=== PATIENT | male | born 1955 | race Caucasian/White ===

== ENCOUNTER 2020-10-14 19:59 | Emergency (ER) | payer OTHER, MEDICAID ==
[~2020-10-14] VITALS: Ht 172.7 cm; Wt 72.6 kg
[~2020-10-14 19:59] MED LIST: LEVE500T32 PO; LISI20TA28 PO; TRAZ50TA2 PO
[2020-10-14] MEDS ORDERED: methylPREDNISolone SOD SUCC 125 MG/2 ML VL IV ONE (20:45)
[2020-10-14] MEDS ORDERED: CEFTRIAXONE SODIUM 2 GM in D5W 5% 50 ML IV ONE (20:45)
[2020-10-14] MEDS ORDERED: GLYCOPYRROLATE 0.2 MG/ML 1ML VIAL IV ONE (20:45)
[2020-10-14] MEDS ORDERED: fentaNYL CITRATE 100 MCG/2 ML VL IV ONE (20:45)
[2020-10-14 21:14] LABS: Basophils # (auto) 0 10 ^3/uL (0-0.2); Basophils % (auto) 0.5 % (0.0-2.0); Eosinophils # (auto) 0.1 10 ^3/uL (0-0.8); Nucleated Red Blood Cells % 0.1 %; Red Cell Distribution Width 14.3 % (11.8-14.3)
[2020-10-14 21:16] LABS: Eosinophils % (auto) 1.8 % (0.0-7.0); Hemoglobin 16.4 g/dL (13.5-17.5); Lymphocytes % (auto) 13.7 % (10.0-50.0); Mean Corpuscular Hemoglobin 34.3 pg (28.0-32.0); Mean Corpuscular Hgb Conc. 35.6 g/dL (32.0-36.0); Mean Corpuscular Volume 96.1 fL (80.0-100.0); Monocytes # (auto) 0.7 10 ^3/uL (0-1.3); Monocytes % (auto) 9.1 % (0.0-12.0); Neutrophils # (auto) 5.3 10 ^3/uL (1.6-8.6); Neutrophils % (auto) 74.9 % (37.0-80.0); Platelet Count (auto) 172 10^3/uL (140-450); Red Blood Cells 4.79 10^6/uL (4.5-5.90); White Blood Cell 7.1 10^3/uL (4.4-10.8)
[2020-10-14 21:27] LABS: INR 0.98 (0.9-1.15)
[2020-10-14 21:30] LABS: Alanine Aminotransferase 49 U/L (16-61); Albumin 3.7 g/dL (3.4-5.0); Anion Gap 7 (5-15); Aspartate Aminotransferase 23 U/L (15-37); Blood Urea Nitrogen 13 mg/dL (7-18); Calcium 8.5 mg/dL (8.5-10.1); Carbon Dioxide 21 mmol/L (21-32); Chloride 110 mmol/L (98-107); GFR African American 96 mL/min; GFR Non-African American 80 mL/min; Glucose 91 mg/dL (74-106); Potassium 3.7 mmol/L (3.5-5.1); Sodium 138 mmol/L (136-145)
[2020-10-14 21:34] LABS: Alkaline Phosphatase 95 U/L (45-117); Bilirubin, Total 0.2 mg/dL (0.2-1.0); Total Protein 7.3 g/dL (6.4-8.2)
[2020-10-14] MEDS ORDERED: IOHEXOL 300 MG/ML 100ML BOTTLE IJ ONE (21:49)
[2020-10-14 22:45] VITALS: BP 115/76
== END 2020-10-14 23:56 | disposition home or self-care (01) ==
LOC: ER 19:59
DX: S01.512A Laceration without foreign body of oral cavity, initial encounter (principal); K14.9 Disease of tongue, unspecified; E04.1 Nontoxic single thyroid nodule; F41.9 Anxiety disorder, unspecified; I10 Essential (primary) hypertension; F10.10 Alcohol abuse, uncomplicated; Y90.0 Blood alcohol level of less than 20 mg/100 ml; Z79.899 Other long term (current) drug therapy; Z90.89 Acquired absence of other organs; X58.XXXA Exposure to other specified factors, initial encounter; Y93.89 Activity, other specified; Y92.89 Other specified places as the place of occurrence of the external cause; Y99.8 Other external cause status
CPT/HCPCS: 36415; 70487; 70491; 80053; 80320; 84484; 85025; 85610; 93005; 96365; 96375; 99285; J0696; J2930; J3010; J7060; Q9967

== ENCOUNTER 2024-04-03 10:15 | Inpatient (IN) | payer OTHER, MEDICAID ==
[~2024-04-03] VITALS: Ht 177.8 cm; Wt 74.9 kg
[~2024-04-03 10:15] MED LIST changes: -LEVE500T32 PO; +LEVE500T40 PO; -LISI20TA28 PO; +LISI20TA56 PO; +TRAZ-227 PO; -TRAZ50TA2 PO
--- NOTE | 2024-04-03 10:51 | ED.PDOC ---
Altered Mental Status HPI Comments 68 y.o male with PMH of HTN, DM, Seizures, Alzheimer, presents to the ED via EMS for an evaluation of altered mental status. EMS reports patient was wandering around a neighborhood barefoot, people around the neighborhood called 911 s/p witnessing patient fall backwards. On scene, patient's blood glucose read 67, E MS administrated D10 bolus increasing glucose to 74. Patient is alert and oriented x 3, complains of back and bilateral feet pain. Multiple small wounds noted to patient's feet. Patient is a poor historian, unknown where he resides and if he has family nearby. Chief Complaint: ALOC Time Seen by MD: 10:28 Primary Care Provider: KOBY/JOB Reviewed Notes: Nurses Notes, Geography Professor Notes, Medications, Allergies Allergies: Coded Allergies: NO KNOWN ALLERGIES (Unverified , 02/18/14) Home Meds Active Scripts Levetiracetam (Keppra) 500 Mg Tab, 1 TAB PO BID, #60 TAB 0 Refills Prov:DESHAWN FELIZ MD 02/19/14 Reported Medications Trazodone Hcl (Trazodone Hcl) 50 Mg Tab, 50 MG PO HS, MG 02/18/14 Lisinopril (Lisinopril) 20 Mg Tab, 20 MG PO DAILY for 30 Days, MG 02/18/14 Information Source: Emergency Med Personnel Mode of Arrival: EMS Severity: Moderate Timing: Hours Duration: Since onset Prehospital treatment: Accucheck (67 and 74 s/p D10 ), Treatment (D10 ) Quality: Decreased Alertness Recent: Other History of: Other (Alzheimer ) Associated Signs and Symptoms: Other Past Medical History PAST MEDICAL HISTORY: Anxiety, HTN, Seizures Past Medical History (Other): Alzheimer Surgical History: Thyroidectomy, Tonsillectomy Family History Family History: Unknown Social History Smoker: Non-Smoker, Quit Greater Than 1 Year Alcohol: Occasionally Drugs: Denies Drug Use Lives In: Home Unable to Obtain due to: Altered Mental Status Physical Exam General Appearance: Moderate Distress HEENT: Normal ENT Inspection, Pharynx Normal, TMs Normal Neck: Full Range of Motion, Non-Tender, Normal, Normal Inspection Respiratory: Chest Non-Tender, Lungs Clear, No Accessory Muscle Use, No Respiratory Distress, Normal Breath Sounds Cardiovascular: No Edema, No JVD, No Murmur, No Gallop, Normal Peripheral Pulses, Regular Rate/Rhythm Breast Exam: Deferred Gastrointestinal: No Organomegaly, Non Tender, No Pulsatile Mass, Normal Bowel Sounds, Soft Genitalia: Deferred Pelvic: Deferred Rectal: Deferred Extremities: No calf tenderness, Normal capillary refill, No pedal edema Musculoskeletal : Apperance: Normal 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 Was a procedure done?: No Differential Diagnosis (ALOC) Differential Diagnosis: Dehydration, Drug Overdose, ETOH Intoxication X-Ray, Labs, Meds, VS Vital Signs Date Time Temp Pulse Resp B/P (MAP) Pulse Ox O2 Delivery O2 Flow Rate FiO2 04/03/24 14:00 94 32 145/80 (101) 95 04/03/24 12:00 102 04/03/24 12:00 102 21 132/75 (94) 96 04/03/24 11:45 106 22 97 Room Air* 0 21 04/03/24 11:22 107 04/03/24 11:18 98.0 109 17 142/86 (104) 96 98.0 04/03/24 11:06 107 04/03/24 10:37 97.9 96 18 117/77 (90) 96 Lab Test 04/03/24 11:42 04/03/24 11:30 04/03/24 11:19 Range/Units POC Glucose 189 H 70-106 mg/dl Urine Color Yellow Yellow Urine Clarity Turbid H Clear Urine pH 5.5 5.0-9.0 Urine Specific [place] 1.017 1.001-1.035 Urine Protein 1+ H Negative Urine Ketones 2+ H Negative Urine Blood 3+ H Negative /uL Urine Nitrite Negative Negative Urine Bilirubin Negative Negative Urine Urobilinogen Normal Negative mg/dL Urine Leukocyte Esterase Negative Negative /uL Urine RBC <1 0 - 3 /hpf Urine WBC 11 0 - 3 /hpf Urine Squamous Epithelial Cells Few <5 /hpf Urine Bacteria Few H None Seen /hpf Urine Hyaline Casts Many 0 - 2 /lpf Urine Mucus Few None Seen Urine Glucose Normal Normal mg/dL Urine Opiates Screen Neg NEGATIVE Urine Fentanyl Screen Neg NEGATIVE Urine Barbiturates Screen Neg NEGATIVE Urine Phencyclidine Screen Neg NEGATIVE Urine Amphetamines Screen Neg NEGATIVE Urine Benzodiazepines Screen Neg NEGATIVE Urine Cocaine Screen Neg NEGATIVE Urine Cannabinoids Screen Pos NEGATIVE White Blood Count 17.3 H 4.4-10.8 10^3/uL Red Blood Count 4.76 4.5-5.90 10^6/uL Hemoglobin 15.3 13.5-17.5 g/dL Hematocrit 47.4 41.0-53.0 % Mean Corpuscular Volume 99.5 80.0-100.0 fL Mean Corpuscular Hemoglobin 32.1 H 28.0-32.0 pg Mean Corpuscular Hemoglobin Concent 32.3 32.0-36.0 g/dL Red Cell Distribution Width 15.4 H 11.8-14.3 % Platelet Count 182 140-450 10^3/uL Mean Platelet Volume 8.4 6.9-10.8 fL Neutrophils (%) (Auto) 92.1 H 37.0-80.0 % Lymphocytes (%) (Auto) 2.1 L 10.0-50.0 % Monocytes (%) (Auto) 5.7 0.0-12.0 % Eosinophils (%) (Auto) 0.0 0.0-7.0 % Basophils (%) (Auto) 0.1 0.0-2.0 % Neutrophils # (Auto) 15.9 H 1.6-8.6 10 ^3/uL Lymphocytes # (Auto) 0.4 0.4-5.4 10 ^3/uL Monocytes # (Auto) 1.0 0-1.3 10 ^3/uL Eosinophils # (Auto) 0 0-0.8 10 ^3/uL Basophils # (Auto) 0 0-0.2 10 ^3/uL Nucleated Red Blood Cells 0.0 % Sodium Level 141 136-145 mmol/L Potassium Level 4.7 3.5-5.1 mmol/L Chloride Level 107 98-107 mmol/L Carbon Dioxide Level 12 L 20-31 mmol/L Anion Gap 22 H 5-15 Blood Urea Nitrogen 35 H 9-23 mg/dL Creatinine 2.98 H 0.700-1.30 mg/dL Glomerular Filtration Rate Calc 22 >90 mL/min BUN/Creatinine Ratio 11.7 10.0-20.0 Serum Glucose 162 H 74-106 mg/dL Lactic Acid Level 1.5 0.4-2.0 mmol/L Calcium Level 9.4 8.7-10.4 mg/dL Total Bilirubin 1.2 H 0.2-1.0 mg/dL Aspartate Amino Transferase (AST) 208 H 13-40 U/L Alanine Aminotransferase (ALT) 64 H 7-40 U/L Alkaline Phosphatase 68 46-116 U/L Total Protein 7.4 5.7-8.2 g/dL Albumin 4.5 3.2-4.8 g/dL Plasma/Serum Blood Alcohol < 3.0 <10 mg/dL Current Medications Medications (Trade) Dose Ordered Sig/Keyla Route Start Time Stop Time Status Last Admin Sodium Chloride 500 ml @ 500 mls/hr Q1H ONCE IVB 04/03/24 11:00 04/03/24 11:59 DC 04/03/24 12:22 CHEST RADIOGRAPH IMPRESSION: No acute disease. IV Hep-Lock was established and the patient was given normal saline at a 500 cc bolus The alcohol level is negative The patient's lactic acid level is within normal limits The CBC shows an elevated white blood cell count of 17.4 The rest of the CBC is within normal limits The BUN is 35 and the creatinine is 2.98 The patient's CO2 level is decreased at 12 in the anion gap is elevated at 22 The marijuana level is positive The urine test is negative for infection At this time there is a concern about acidosis so we are getting an ABG on this patient The patient was being admitted at this time Images Reviewed?: Images reviewed and evaluated by me Time of 1ST Reevaluation: 10:46 Reevaluation 1ST: Unchanged Patient Education/Counseling: Other (patient is alert and oriented x 3 ) Family Education/Counseling: No Family Present Departure 1 Departure Time of Disposition: 15:06 Impression: Primary Impression: Confusion Additional Impression: Metabolic acidosis Disposition: 09 ADMITTED INPATIENT Admit to: Tele Condition: Fair Critical Care Note Critical Care Time?: Yes (35 min-critical care time only) Stability Stability form required: Yes Unstable for transfer: Telemetry monitoring (Telemetry monitoring required), ED Physician Assesment (Clinical assesment) I personally scribed for ARVIND NORWOOD MD (NABILPASOLIVIA) on 04/03/24 at 10:51. Electronically submitted by Stephany Botello ([facility]). I personally scribed for ARVIND NORWOOD MD (NABILPASLE) on 04/03/24 at 11:22. Electronically submitted by Stephany Botello ([facility]). I personally scribed for ARVIND NORWOOD MD (DVPASOLIVIA) on 04/03/24 at 12:11. Electronically submitted by Stephany Botello ([facility]). ARVIND NORWOOD MD Apr 03, 2024 10:51
[2024-04-03 11:45] VITALS: PULSE 106; RESP 22; O2SAT 97
--- NOTE | 2024-04-03 11:45 | DVH ---
CHEST RADIOGRAPH Indication:aloc Technique: Single frontal view of the chest was obtained COMPARISON: None FINDINGS: Lines and Tubes: None Lungs: Clear Pleura: No effusion. No pneumothorax. Cardiomediastinal contours: Unremarkable Bones: Unremarkable IMPRESSION: No acute disease.
[2024-04-03 11:50] LABS: Basophils # (auto) 0 10 ^3/uL (0-0.2); Basophils % (auto) 0.1 % (0.0-2.0); Eosinophils # (auto) 0 10 ^3/uL (0-0.8); Hematocrit 47.4 % (41.0-53.0); Hemoglobin 15.3 g/dL (13.5-17.5); Lymphocytes # (auto) 0.4 10 ^3/uL (0.4-5.4); Lymphocytes % (auto) 2.1 % (10.0-50.0); Mean Corpuscular Hemoglobin 32.1 pg (28.0-32.0); Mean Corpuscular Hgb Conc. 32.3 g/dL (32.0-36.0); Mean Corpuscular Volume 99.5 fL (80.0-100.0); Monocytes % (auto) 5.7 % (0.0-12.0); Neutrophils # (auto) 15.9 10 ^3/uL (1.6-8.6); Neutrophils % (auto) 92.1 % (37.0-80.0); Platelet Count (auto) 182 10^3/uL (140-450); Red Blood Cells 4.76 10^6/uL (4.5-5.90); Red Cell Distribution Width 15.4 % (11.8-14.3); White Blood Cell 17.3 10^3/uL (4.4-10.8)
[2024-04-03 12:06] LABS: Amphetamine Screen, Urine Neg (NEGATIVE)
[2024-04-03 12:07] LABS: Barbiturate Scree,Urine Neg (NEGATIVE); Benzodiazephine Screen, Urine Neg (NEGATIVE); Cocaine Screen, Urine Neg (NEGATIVE); Opiate Scree,Urine Neg (NEGATIVE); Phencyclidine Screen, Urine Neg (NEGATIVE)
[2024-04-03 12:08] LABS: Cannabinoid Screen, Urine Pos (NEGATIVE)
[2024-04-03 12:09] LABS: Alanine Aminotransferase 64 U/L (7-40); Albumin 4.5 g/dL (3.2-4.8); Alkaline Phosphatase 68 U/L (46-116); Anion Gap 22 (5-15); Aspartate Aminotransferase 208 U/L (13-40); BUN/Creatinine Ratio 11.7 (10.0-20.0); Blood Alcohol < 3.0 mg/dL (<10); Blood Urea Nitrogen 35 mg/dL (9-23); Calcium 9.4 mg/dL (8.7-10.4); Carbon Dioxide 12 mmol/L (20-31); Chloride 107 mmol/L (98-107); Glucose 162 mg/dL (74-106); Potassium 4.7 mmol/L (3.5-5.1); Sodium 141 mmol/L (136-145)
[2024-04-03 12:10] LABS: Bilirubin, Total 1.2 mg/dL (0.2-1.0); Total Protein 7.4 g/dL (5.7-8.2)
[2024-04-03] MEDS: SODIUM CHLORIDE 0.9% 500 ML IVB ONE (12:22)
[2024-04-03 13:02] LABS: Urine Bacteria FEW /hpf (None Seen); Urine Blood 3+ /uL (Negative); Urine Clarity Turbid (Clear); Urine Color Yellow (Yellow); Urine Hyaline Cast MANY /lpf (0 - 2); Urine Mucus FEW (None Seen); Urine Protein, UAD 1+ (Negative); Urine Specific Gravity 1.017 (1.001-1.035); Urine Urobilinogen Normal (Negative); Urine WBC 11 /hpf (0 - 3); Urine pH 5.5 (5.0-9.0)
--- NOTE | 2024-04-03 14:38 | ECG ---
[facility] Test Date: 2024-04-03 Test Time: 11:06:10 Pat Name: TRESA MENA Department: ED Room: Gender: M Monument Carver: SUJATA : 1955 Requested By: ARVIND NORWOOD Order Number: [id number] Reading MD: Measurements Intervals [place] Rate: 107 P: 65 MI: 155 QRS: -37 QRSD: 83 T: 103 QT: 383 QTc: 511 Interpretive Statements Sinus tachycardia Atrial premature complexes Left axis deviation RSR' in V1 or V2, probably normal variant Nonspecific T abnormalities, lateral leads Prolonged QT interval Please click the below link to view image of tracing.
--- NOTE | 2024-04-03 16:53 | DVH ---
EXAM: CT HEAD WITHOUT CONTRAST INDICATION: aloc TECHNIQUE: CT of the head without intravenous contrast. Radiation dose : Head: CT Dose: CTDI volume is 53 mGy. Dose-length product is 969.12 mGy*cm The dose indicators for CT are the volume computed tomography (CT) dose index (CTDIvol) and the dose length product (DLP), and are measured in units of mGy and mGy-cm, respectively. These indicators are not patient dose, but values generated from the CT scanner acquisition factors. The report includes radiation exposure data for exposures received during this examination. COMPARISON: None FINDINGS: There is no evidence of acute intracranial hemorrhage, extra-axial collection, mass effect, midline s hift, herniation or hydrocephalus. There is mild cerebral atrophy. The flynn-white differentiation is intact. Patchy periventricular and subcortical white matter hypoattenuation is nonspecific but may be related to small vessel ischemic disease. Mild ethmoid sinus disease. The surrounding soft tissues and osseous structures are unremarkable. IMPRESSION: 1. No acute intracranial abnormality. Mild cerebral atrophy. Mild changes of chronic microvascular i schemic disease. Mild ethmoid sinus disease. Radiation optimization: All CT scans at this facility use at least one of these dose optimization russel hniques: Automated exposure control mA and/or kV adjustment per patient size (includes targeted exams where dose is matched to clinical indication) or iterative reconstruction. HS:Y
--- NOTE | 2024-04-03 17:10 | DVHHP2 ---
History of Present Illness History of Present Illness 68-year-old male with a history of hypertension, seizures presents to the emergency room for altered mental status. Apparently patient was found wandering through the neighborhood barefoot by EMS. Review of Systems Respiratory: No: Cough, Dry, Shortness of breath, SOB with excertion, Wheezing, Hemoptysis, Pleuritic Pain, Sputum, Wheezing, Other Gastrointestinal: No: Nausea, Vomiting, Abdominal Pain, Diarrhea, Constipation, Melena, Hematochezia, Other Neurological: No: Weakness, Numbness, Incoordination, Change in speech, Confusion, Seizures, Other Allergies: Coded Allergies: NO KNOWN ALLERGIES (Unverified , 02/18/14) Medications Current Medications Medications Dose Ordered Sig/Keyla Route Start Time Stop Time Status Last Admin Dose Admin Enoxaparin Sodium 40 mg DAILY SC 04/04/24 10:00 UNV Nitroglycerin 0.4 mg Q5MINP PRN SL 04/03/24 17:15 UNV Morphine Sulfate 2 mg Q30M PRN IV 04/03/24 17:15 UNV Sodium Chloride 1,000 ml @ 75 mls/hr [id number] IV 04/03/24 17:15 UNV Levetiracetam 500 mg BID PO 04/03/24 22:00 UNV Lisinopril 20 mg DAILY PO 04/04/24 10:00 UNV Trazodone HCl 50 mg HS PO 04/03/24 22:00 UNV Exam Vital Signs Vital Signs Date Time Temp Pulse Resp B/P (MAP) Pulse Ox O2 Delivery O2 Flow Rate FiO2 04/03/24 16:00 107 04/03/24 14:00 32 145/80 (101) 95 04/03/24 11:45 Room Air* 0 21 04/03/24 11:18 98.0 98.0 General Appearance: Other (altered) Respiratory: Clear to auscultation, Normal air movement Cardiovascular: Regular rate, Normal S1, Normal S2, No murmurs Abdominal: Normal bowel sounds, Soft, No tenderness Extremities: No clubbing Labs/Xrays Labs Test 04/03/24 11:42 04/03/24 11:30 04/03/24 11:19 Range/Units POC Glucose 189 H 70-106 mg/dl Urine Color Yellow Yellow Urine Clarity Turbid H Clear Urine pH 5.5 5.0-9.0 Urine Specific [place] 1.017 1.001-1.035 Urine Protein 1+ H Negative Urine Ketones 2+ H Negative Urine Blood 3+ H Negative /uL Urine Nitrite Negative Negative Urine Bilirubin Negative Negative Urine Urobilinogen Normal Negative mg/dL Urine Leukocyte Esterase Negative Negative /uL Urine RBC <1 0 - 3 /hpf Urine WBC 11 0 - 3 /hpf Urine Squamous Epithelial Cells Few <5 /hpf Urine Bacteria Few H None Seen /hpf Urine Hyaline Casts Many 0 - 2 /lpf Urine Mucus Few None Seen Urine Glucose Normal Normal mg/dL Urine Opiates Screen Neg NEGATIVE Urine Fentanyl Screen Neg NEGATIVE Urine Barbiturates Screen Neg NEGATIVE Urine Phencyclidine Screen Neg NEGATIVE Urine Amphetamines Screen Neg NEGATIVE Urine Benzodiazepines Screen Neg NEGATIVE Urine Cocaine Screen Neg NEGATIVE Urine Cannabinoids Screen Pos NEGATIVE White Blood Count 17.3 H 4.4-10.8 10^3/uL Red Blood Count 4.76 4.5-5.90 10^6/uL Hemoglobin 15.3 13.5-17.5 g/dL Hematocrit 47.4 41.0-53.0 % Mean Corpuscular Volume 99.5 80.0-100.0 fL Mean Corpuscular Hemoglobin 32.1 H 28.0-32.0 pg Mean Corpuscular Hemoglobin Concent 32.3 32.0-36.0 g/dL Red Cell Distribution Width 15.4 H 11.8-14.3 % Platelet Count 182 140-450 10^3/uL Mean Platelet Volume 8.4 6.9-10.8 fL Neutrophils (%) (Auto) 92.1 H 37.0-80.0 % Lymphocytes (%) (Auto) 2.1 L 10.0-50.0 % Monocytes (%) (Auto) 5.7 0.0-12.0 % Eosinophils (%) (Auto) 0.0 0.0-7.0 % Basophils (%) (Auto) 0.1 0.0-2.0 % Neutrophils # (Auto) 15.9 H 1.6-8.6 10 ^3/uL Lymphocytes # (Auto) 0.4 0.4-5.4 10 ^3/uL Monocytes # (Auto) 1.0 0-1.3 10 ^3/uL Eosinophils # (Auto) 0 0-0.8 10 ^3/uL Basophils # (Auto) 0 0-0.2 10 ^3/uL Nucleated Red Blood Cells 0.0 % Sodium Level 141 136-145 mmol/L Potassium Level 4.7 3.5-5.1 mmol/L Chloride Level 107 98-107 mmol/L Carbon Dioxide Level 12 L 20-31 mmol/L Anion Gap 22 H 5-15 Blood Urea Nitrogen 35 H 9-23 mg/dL Creatinine 2.98 H 0.700-1.30 mg/dL Glomerular Filtration Rate Calc 22 >90 mL/min BUN/Creatinine Ratio 11.7 10.0-20.0 Serum Glucose 162 H 74-106 mg/dL Lactic Acid Level 1.5 0.4-2.0 mmol/L Calcium Level 9.4 8.7-10.4 mg/dL Total Bilirubin 1.2 H 0.2-1.0 mg/dL Aspartate Amino Transferase (AST) 208 H 13-40 U/L Alanine Aminotransferase (ALT) 64 H 7-40 U/L Alkaline Phosphatase 68 46-116 U/L Total Protein 7.4 5.7-8.2 g/dL Albumin 4.5 3.2-4.8 g/dL Plasma/Serum Blood Alcohol < 3.0 <10 mg/dL Assessment/Plan Assessment/Plan 1. Metabolic encephalopathy Neurology consult, obtain brain MRI, supportive care 2. Hypertension Monitor blood pressure, continue home meds 3. Seizures Seizure precautions, continue with Keppra 4. Leukocytosis without sepsis or SIRS Rocephin for now 5. Acute psychosis? Tele psych consult 6. CKD Monitor BMP Plan discussed with: Patient My Orders Orders - AILYN VICTORIA DIALYSIS EQUIPMENT TECHNICIAN Procedure Category Date Status Time Head Without Contrast CT 04/03/24 Resulted 16:19 Admit ADMIT 04/03/24 Transmitted 17:05 2 Gm Sodium Diet DIET 04/03/24 Transmitted Dinner Enoxaparin Sodium PHA 04/04/24 Logged (Lovenox) 10:00 Condition: Fair CLARK 04/03/24 In Process 17:05 Nitroglycerin PHA 04/03/24 Logged Sublingual (Ntrostat 17:15 Morphine Sulfate PHA 04/03/24 Logged Injection 17:15 Stat Ekg For Chest CLARK 04/03/24 In Process Pain 17:05 Notify Of Changes CLARK 04/03/24 In Process From Base 17:05 Cupola Tapper For CLARK 04/03/24 In Process 24 Hours 17:05 Emergency Dysrhythmia CLARK 04/03/24 In Process Protocol 17:05 Rhythm Strips Once CLARK 04/03/24 In Process Every Shift 17:05 Oxygen By Nasal RT 04/03/24 Transmitted Cannula 17:05 Brain Head Wo Contrast MRI 04/03/24 Logged 17:05 *Cons[address] Calderon CONS 04/03/24 Transmitted [place] 17:05 Sodium Chloride 0.9% PHA 04/03/24 Logged 17:15 Soc Telemed Psych CONS 04/03/24 Transmitted Consult 17:08 Levetiracetam Tablet PHA 04/03/24 Logged (Keppra Tablet) 22:00 Lisinopril Tablet PHA 04/04/24 Logged (Zestril Tablet) 10:00 Trazodone Hcl PHA 04/03/24 Logged (Desyrel) 22:00 Ammonia LAB 04/03/24 Transmitted 17:09 Lipid Panel LAB 04/04/24 Verified 05:00 Date of Service: Apr 03, 2024 Billing Provider: LOUIS HWANG MD Common Visit Codes: [id number] INP/OBS CARE (MOD) AILYN VICTORIA DIALYSIS EQUIPMENT TECHNICIAN Apr 03, 2024 17:10
[2024-04-03] MEDS ORDERED: MORPHINE SULFATE INJ 2 MG/ml SYRG IV PRN (17:15)
[2024-04-03] MEDS: SODIUM CHLORIDE 0.9% 1,000 ML IV SCH ×2 (17:15→20:15)
[2024-04-03] MEDS ORDERED: NITROGLYCERIN 0.4 MG SL TAB SL PRN (17:15)
[2024-04-03] MEDS: cefTRIAXone 1GM/50ML D5W 50 ML IV SCH (18:30)
--- NOTE | 2024-04-03 20:50 | DVHINCON2 ---
Date of service: Apr 03, [address] Cosme Spear Reason for Consultation ALOC History of Present Illness Mr Castorena is a 68 years old right handed male with a history of hypertension, diabetes, anxiety. He was brought to the [facility] for altered mental status. At this time, he is alert, oriented to person, place, not able to provide history, the following information is obtained from his son, chart review and nurse I saw him on 02/18/14 for seizure Apparently, the patient was found wandering on the street with bare feet, and people witnessed him falling backwards, bystander dial 911. On scene, his blood glucose was 67 and he was treated accordingly According to the family, the patient has nonconvulsive seizure disorders, the symptoms provided by his son were consistent with the one obtained from his girlfriend in 01/2014. He has episodic event where he became nonresponsive, smacks or sucks mouth, with tongue biting and bowel incontinence, but no convulsion, the vents were about 30 seconds. His son is not aware of the frequency of these attacks, and wound was last time he had one He was on Keppra, but son is not aware of the dosage, According to my consultation reports dated 01/2524, he had constant short-term memory difficulty, he was related the problem has been more obvious since 2018 UDS, 04/03/2024: Cannabinoids Plasma alcohol, 04/03/2024: < 3 Urinalysis, 04/03/2024: WBC: 11, urine leukocyte esterase: Negative WBC/HB/PLT/MCV, 04/03/2024: 17.3/15.3/182/99.5 BUN/CR, 04/03/2024: 35/2.98 HCO3 04/03/2024: 12 Lactic Acid, 04/03/2024: 1.5 HGB A1c, 04/03/2024: 5.4 TBI/AST/ALT/AP, 04/03/2024: 1.2/208/64/68 Ammonia, 04/03/24: <10 CT head, 04/03/2024: No acute intracranial abnormality. Mild cerebral atrophy. Mild changes of chronic microvascular ischemic disease. Mild ethmoid sinus disease. Past Medical History Hypertension, diabetes, anxiety, delirium tremor Past Surgical History Tonsillectomy, thyroidectomy Family History: Family history: Cardiovascular disease G8 MOTHER G8 FATHER (SVT) G8 BROTHER (Mitral valve replacement endocarditis ) Stroke G8 BROTHER Family History Stroke. Father had alcohol problem and dementia Social History Smoking: Previous tobacco smoker Alcohol: Previous alcohol abuse, he may still abuse alcohol, family found alcohol in his hotel room on 04/03/24 Drugs: None Lives In: A hotel Allergies: Coded Allergies: NO KNOWN ALLERGIES (Unverified , 02/18/14) Home Meds Active Scripts Levetiracetam (Keppra) 500 Mg Tab, 1 TAB PO BID, #60 TAB 0 Refills Prov:DESHAWN FELIZ MD 02/19/14 Reported Medications Trazodone Hcl (Trazodone Hcl) 50 Mg Tab, 50 MG PO HS, MG 02/18/14 Lisinopril (Lisinopril) 20 Mg Tab, 20 MG PO DAILY for 30 Days, MG 02/18/14 Current Medications Current Medications Medications (Trade) Dose Ordered Sig/Keyla Route PRN Reason Start Time Stop Time Status Last Admin Enoxaparin Sodium (Lovenox) 30 mg DAILY SC 04/04/24 10:00 Nitroglycerin (Ntrostat Sublingual) 0.4 mg Q5MINP PRN SL FOR CHEST PAIN 04/03/24 17:15 Morphine Sulfate 2 mg Q30M PRN IV FOR CHEST PAIN 04/03/24 17:15 Sodium Chloride 1,000 ml @ 75 mls/hr [id number] IV 04/03/24 17:15 Levetiracetam (Keppra Tablet) 500 mg BID PO 04/03/24 22:00 Lisinopril (Zestril Tablet) 20 mg DAILY PO 04/04/24 10:00 Trazodone HCl (Desyrel) 50 mg HS PO 04/03/24 22:00 Ceftriaxone Sodium 50 ml @ 100 mls/hr DAILY@09 IV 04/03/24 18:00 04/03/24 18:30 Sodium Chloride 1,000 ml @ 50 mls/hr Q20H IV 04/03/24 19:00 Review of Systems Unobtainable Vital Signs Vital Signs Date Time Temp Pulse Resp B/P (MAP) Pulse Ox O2 Delivery O2 Flow Rate FiO2 04/03/24 18:00 93 13 145/67 (93) 96 04/03/24 11:45 Room Air* 0 21 04/03/24 11:18 98.0 98.0 Physical Exam GENERAL EXAM: General: the patient is well developed and nourished. No acute distress. HEENT: Normocephalic, neck is supple, no carotid bruits. No mass. ation. CARDIOVASCULAR: Regular rate and rhythm with no murmurs. S1, S2. ABDOMEN: Soft, nontender, normal bowel sound NEUROLOGICAL: MENTAL STATUS: Awake and alert. Oriented to person, place. Reasonable social skills SPEECH, LANGUAGE, HIGHER CORTICAL FUNCTION: no aphasia or dysathria. CRANIAL NERVES: #2: Intact visual quinteros to confrontation. The optic discs were sharp. #3,4,6: Pupils are equal, round and reactive. EOMs full and conjugate. No nystagmus. #5: Facial sensation intact in all three divisions bilaterally. Mandibular strength intact. #7: Facial muscles symmetrical and strength intact. #8: Hearing grossly normal to voice. #9,10: Uvula and soft palate rise in the midline. Swallow and voice are normal. #11: Trapezius and sternomastoid strength intact bilaterally. #12: Tongue midline. No fasciculations or atrophy. SENSATION: Sensation to touch and pinprick is normal. MOTOR: Normal tone in the upper and lower extremity. Normal muscle bulk. No fasciculations. No abnormal movements or posturing. Muscle strength of the major groups in the upper extremities is 5/5. Muscle strength of the major groups in the lower extremities is 5/5. REFLEXES: Deep tendon reflexes symmetrical. No pathological reflexes. CEREBELLAR/COORDINATION: Finger to nose is normal bilaterally. GAIT/STATION: deferred. Labs/Diagnostic Data Labs Test 04/03/24 17:47 04/03/24 11:42 04/03/24 11:30 04/03/24 11:19 Range/Units Ammonia < 10 L 11-32 umol/L POC Glucose 189 H 70-106 mg/dl Urine Color Yellow Yellow Urine Clarity Turbid H Clear Urine pH 5.5 5.0-9.0 Urine Specific [place] 1.017 1.001-1.035 Urine Protein 1+ H Negative Urine Ketones 2+ H Negative Urine Blood 3+ H Negative /uL Urine Nitrite Negative Negative Urine Bilirubin Negative Negative Urine Urobilinogen Normal Negative mg/dL Urine Leukocyte Esterase Negative Negative /uL Urine RBC <1 0 - 3 /hpf Urine WBC 11 0 - 3 /hpf Urine Squamous Epithelial Cells Few <5 /hpf Urine Bacteria Few H None Seen /hpf Urine Hyaline Casts Many 0 - 2 /lpf Urine Mucus Few None Seen Urine Glucose Normal Normal mg/dL Urine Opiates Screen Neg NEGATIVE Urine Fentanyl Screen Neg NEGATIVE Urine Barbiturates Screen Neg NEGATIVE Urine Phencyclidine Screen Neg NEGATIVE Urine Amphetamines Screen Neg NEGATIVE Urine Benzodiazepines Screen Neg NEGATIVE Urine Cocaine Screen Neg NEGATIVE Urine Cannabinoids Screen Pos NEGATIVE White Blood Count 17.3 H 4.4-10.8 10^3/uL Red Blood Count 4.76 4.5-5.90 10^6/uL Hemoglobin 15.3 13.5-17.5 g/dL Hematocrit 47.4 41.0-53.0 % Mean Corpuscular Volume 99.5 80.0-100.0 fL Mean Corpuscular Hemoglobin 32.1 H 28.0-32.0 pg Mean Corpuscular Hemoglobin Concent 32.3 32.0-36.0 g/dL Red Cell Distribution Width 15.4 H 11.8-14.3 % Platelet Count 182 140-450 10^3/uL Mean Platelet Volume 8.4 6.9-10.8 fL Neutrophils (%) (Auto) 92.1 H 37.0-80.0 % Lymphocytes (%) (Auto) 2.1 L 10.0-50.0 % Monocytes (%) (Auto) 5.7 0.0-12.0 % Eosinophils (%) (Auto) 0.0 0.0-7.0 % Basophils (%) (Auto) 0.1 0.0-2.0 % Neutrophils # (Auto) 15.9 H 1.6-8.6 10 ^3/uL Lymphocytes # (Auto) 0.4 0.4-5.4 10 ^3/uL Monocytes # (Auto) 1.0 0-1.3 10 ^3/uL Eosinophils # (Auto) 0 0-0.8 10 ^3/uL Basophils # (Auto) 0 0-0.2 10 ^3/uL Nucleated Red Blood Cells 0.0 % Sodium Level 141 136-145 mmol/L Potassium Level 4.7 3.5-5.1 mmol/L Chloride Level 107 98-107 mmol/L Carbon Dioxide Level 12 L 20-31 mmol/L Anion Gap 22 H 5-15 Blood Urea Nitrogen 35 H 9-23 mg/dL Creatinine 2.98 H 0.700-1.30 mg/dL Glomerular Filtration Rate Calc 22 >90 mL/min BUN/Creatinine Ratio 11.7 10.0-20.0 Serum Glucose 162 H 74-106 mg/dL Hemoglobin A1c 5.4 <5.7 % A1C Lactic Acid Level 1.5 0.4-2.0 mmol/L Calcium Level 9.4 8.7-10.4 mg/dL Total Bilirubin 1.2 H 0.2-1.0 mg/dL Aspartate Amino Transferase (AST) 208 H 13-40 U/L Alanine Aminotransferase (ALT) 64 H 7-40 U/L Alkaline Phosphatase 68 46-116 U/L Total Protein 7.4 5.7-8.2 g/dL Albumin 4.5 3.2-4.8 g/dL Thyroid Stimulating Hormone (TSH) 0.97 0.55-4.78 uIU/mL Plasma/Serum Blood Alcohol < 3.0 <10 mg/dL Assessment Altered mental status ? Metabolic encephalopathy ? 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 Although this document has been carefully reviewed, there may still be some phonetic and typographical errors. These areas are purely typographical due to imperfections of the software programs, and do not reflect any compromise in the patient's medical care. Plan discussed with: Homar, Estephania ELLIE BANERJEE MD Apr 03, 2024 20:50
[2024-04-03] MEDS ORDERED: LORazepam 2MG/ML-1ML VIAL IV PRN (21:30)
[2024-04-03 22:46] LABS: COVID19 ANTIGEN SOFIA FIA NEGATIVE (NEGATIVE); Rapid Influenza A Negative (Negative); Rapid Influenza B Negative (Negative)
[2024-04-03] MEDS: traZODone HCL 50 MG TAB PO SCH (23:08)
[2024-04-03] MEDS: levETIRAcetam 500 MG TAB PO SCH (23:08)
[2024-04-04] VITALS (8 sets, daily range): BP systolic 98–118; BP diastolic 61–79; PULSE 59–90; RESP 18–20; TEMP 97.2–98.6; O2SAT 93–95
[2024-04-04] MEDS: ENOXAPARIN SOD 30 MG/0.3 ML SYRINGE SC SCH (09:45)
[2024-04-04] MEDS: LISINOPRIL 20 MG TAB PO SCH (10:00)
[2024-04-04] MEDS: LORazepam 2MG/ML-1ML VIAL IV PRN (10:10)
--- NOTE | 2024-04-04 12:13 | DVH ---
EXAM: MRI BRAIN HEAD WO CONTRAST HISTORY: CVA COMPARISON: CT HEAD WITHOUT CONTRAST on DOS: 04/03/24 TECHNIQUE: MRI was performed utilizing multiple appropriate imaging planes and pulse sequences. FINDINGS: SUPRATENTORIAL REGION: No evidence for acute ischemia or intracranial hemorrhage. Scattered ill-defi mohan FLAIR hyperintensities are noted within the bilateral periventricular region, vera radiata and subcortical white matter. POSTERIOR FOSSA: Unremarkable. BRAINSTEM: Unremarkable. SELLAR/SUPRASELLAR REGION: Unremarkable. VENTRICLES, CISTERNS, SULCI: Age-appropriate. ORBITS: Unremarkable. PARANASAL SINUSES: Unremarkable. MASTOID AIR CELLS: Unremarkable. VASCULATURE: Unremarkable. BONES/ SOFT TISSUES: Unremarkable. OTHER: None. IMPRESSION: 1. No acute intracranial process identified. 2. Mild chronic microvascular ischemic changes.
[2024-04-04 12:22] LABS: Basophils # (auto) 0 10 ^3/uL (0-0.2); Basophils % (auto) 0.4 % (0.0-2.0); Eosinophils # (auto) 0.1 10 ^3/uL (0-0.8); Eosinophils % (auto) 1.2 % (0.0-7.0); Hemoglobin 14.3 g/dL (13.5-17.5); Lymphocytes # (auto) 1.1 10 ^3/uL (0.4-5.4); Lymphocytes % (auto) 12.8 % (10.0-50.0); Mean Corpuscular Hemoglobin 32.6 pg (28.0-32.0); Mean Corpuscular Hgb Conc. 34.9 g/dL (32.0-36.0); Mean Corpuscular Volume 93.4 fL (80.0-100.0); Monocytes # (auto) 0.7 10 ^3/uL (0-1.3); Monocytes % (auto) 7.9 % (0.0-12.0); Neutrophils # (auto) 6.7 10 ^3/uL (1.6-8.6); Neutrophils % (auto) 77.7 % (37.0-80.0); Nucleated Red Blood Cells % 0.1 %; Platelet Count (auto) 156 10^3/uL (140-450); Red Cell Distribution Width 14.3 % (11.8-14.3); White Blood Cell 8.6 10^3/uL (4.4-10.8)
[2024-04-04 12:40] LABS: Chloride 113 mmol/L (98-107); Potassium 3.8 mmol/L (3.5-5.1); Sodium 144 mmol/L (136-145)
[2024-04-04 12:41] LABS: Anion Gap 4 (5-15); Calcium 9.6 mg/dL (8.7-10.4); Carbon Dioxide 27 mmol/L (20-31)
[2024-04-04 12:46] LABS: BUN/Creatinine Ratio 23.5 (10.0-20.0); Blood Urea Nitrogen 28 mg/dL (9-23); Glucose 146 mg/dL (74-106); Triglycerides 102 mg/dL (< 150)
[2024-04-04 12:47] LABS: LDL Cholesterol 63 mg/dL (< 100)
[2024-04-04 12:48] LABS: Cholesterol 144 mg/dL (< 200); HDL Cholesterol 59 mg/dL (40-59)
--- NOTE | 2024-04-04 14:04 | DVHPN2 ---
Progress Note Date Seen: Apr 04, 2024 Medical Necessity Reason Pt with a Central, PICC or Fol: No Subjective Review of Systems: CVS:Normal, RESPIRATORY:Normal, GI:Normal, NEURO:Normal Objective vital signs Vital Sign Date Time Temp Pulse Resp B/P (MAP) Pulse Ox O2 Delivery O2 Flow Rate FiO2 04/04/24 12:00 97.2 65 20 110/75 (87) 94 97.2 04/04/24 08:10 Room Air* 0 21 Total Intake and Output 04/03/24 04/03/24 04/04/24 15:00 23:00 07:00 Intake Total 500 ml 50 ml 450 ml Balance 500 ml 50 ml 450 ml medications Current Medications Medications Dose Ordered Sig/Keyla Route Start Time Stop Time Status Last Admin Dose Admin Enoxaparin Sodium 30 mg DAILY SC 04/04/24 10:00 04/04/24 09:45 30 MG Nitroglycerin 0.4 mg Q5MINP PRN SL 04/03/24 17:15 Morphine Sulfate 2 mg Q30M PRN IV 04/03/24 17:15 Sodium Chloride 1,000 ml @ 75 mls/hr [id number] IV 04/03/24 17:15 Levetiracetam 500 mg BID PO 04/03/24 22:00 04/04/24 09:45 500 MG Lisinopril 20 mg DAILY PO 04/04/24 10:00 Trazodone HCl 50 mg HS PO 04/03/24 22:00 04/03/24 23:08 50 MG Ceftriaxone Sodium 50 ml @ 100 mls/hr DAILY@09 IV 04/03/24 18:00 04/04/24 10:58 100 MLS/HR Sodium Chloride 1,000 ml @ 50 mls/hr Q20H IV 04/03/24 19:00 04/04/24 10:58 50 MLS/HR Lorazepam 1 mg ONCE PRN IV 04/03/24 21:30 04/04/24 10:10 1 MG Lorazepam 1 mg Q5MINP PRN IV 04/03/24 21:30 Examination: GENERAL:Normal, HEENT:Normal, LUNGS:Normal, CVS:Normal, ABDOMEN:Normal, SKIN:Normal, NEURO:Normal laboratory and microbiology Laboratory Tests 04/04/24 11:50 Test 04/04/24 11:50 Range/Units Serum Glucose 146 H 74-106 mg/dL Microbiology Date/Time Source Procedure Growth Status 04/03/24 11:19 Blood Blood Culture - Preliminary NO GROWTH AFTER 24 HOURS OF INCUBATION. Resulted Labs and/or images reviewed: Labs reviewed by me, Image(s) reviewed by me Problem List/Assessment/Plan Problem List/Assessment/Plan 1. Metabolic encephalopathy Neurology consult, obtain brain MRI, supportive care 2. Hypertension Monitor blood pressure, continue home meds 3. Seizures Seizure precautions, continue with Keppra 4. Leukocytosis without sepsis or SIRS Rocephin for now 5. Acute psychosis? Tele psych consult 6. ANDREWS likely vasomotor nephropathy IV fluids at 60 mL 7. Dementia Subjective: Patient is alert Objective: Patient was admitted for metabolic encephalopathy, patient is more alert today. MRI of brain is negative head CT is negative. UA is negative for urinary tract infection. Patient was seen by neurologist who believes patient may have dementia. Tele psych consult was placed to rule out any psychosis. Patient was found to have ANDREWS which is improving on IV fluids. Currently GFR is 67 creatinine is 1.19. Patient has some leukocytosis which is likely from inflammation. 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 Procedure Category Date Status Time Head Without Contrast CT 04/03/24 Resulted 16:19 Admit ADMIT 04/03/24 Transmitted 17:05 2 Gm Sodium Diet DIET 04/03/24 Transmitted Dinner Condition: Fair CLARK 04/03/24 In Process 17:05 Nitroglycerin PHA 04/03/24 In Process Sublingual (Ntrostat 17:15 Morphine Sulfate PHA 04/03/24 In Process Injection 17:15 Stat Ekg For Chest CLARK 04/03/24 In Process Pain 17:05 Notify Md Of Changes CLARK 04/03/24 In Process From Base 17:05 New Car Driver For CLARK 04/03/24 In Process 24 Hours 17:05 Emergency Dysrhythmia CLARK 04/03/24 In Process Protocol 17:05 Rhythm Strips Once CLARK 04/03/24 In Process Every Shift 17:05 Oxygen By Nasal RT 04/03/24 Transmitted Cannula 17:05 *Cons[address] Calderon CONS 04/03/24 Transmitted Correa 17:05 Sodium Chloride 0.9% PHA 04/03/24 In Process 17:15 Soc Telemed Psych CONS 04/03/24 Transmitted Consult 17:08 Levetiracetam Tablet PHA 04/03/24 In Process (Keppra Tablet) 22:00 Lisinopril Tablet PHA 04/04/24 In Process (Zestril Tablet) 10:00 Trazodone Hcl PHA 04/03/24 In Process (Desyrel) 22:00 Enoxaparin Sodium PHA 04/04/24 In Process (Lovenox) 10:00 Ceftriaxone 1gm/50ml PHA 04/03/24 In Process D5w (Rocephin) 18:00 Communication Order ORDERS 04/03/24 Transmitted 17:24 Sodium Chloride 0.9% PHA 04/03/24 In Process 19:00 * Drafter Commercial CONS 04/04/24 Transmitted Consult Brain Head Wo Contrast MRI 04/04/24 Resulted Date of Service: Apr 04, 2024 Billing Provider: LOUIS HWANG MD Common Visit Codes: [id number] INP/OBS CARE (MOD) AILYN VICTORIA Apr 04, 2024 14:04
[2024-04-04] MEDS ORDERED: OLANZapine 5 MG TAB PO PRN (18:15)
--- NOTE | 2024-04-04 18:19 | DVHINCON2 ---
Date of service: Apr 04, 2024 Referring Physician ANDRE Mccoy Reason for Consultation Medication management and disposition. History of Present Illness Chief complaint: "I had some tests done". History of present illness: This is a 68-year-old male who was seen for evaluation via telepsychiatry. Patient reported that he has been feeling more depressed for last six months. Patient reported having trouble sleeping, loss of interest, has trouble content, appetite decreased. He denied feeling hopeless or worthless. He denied any suicidal or homicidal ideation. He denied any auditory or visual hallucination. He reported feeling anxious. Past psychiatric history: Patient denied any suicide attempts in the past. He has never been treated for any psychiatric illness in the past. Past Medical History As per history and physical. Past Surgical History As per history and physical. Family History: Family history: Cardiovascular disease G8 MOTHER G8 FATHER (SVT) G8 BROTHER (Mitral valve replacement endocarditis ) Stroke G8 BROTHER Family History He denied any family history of any psychiatric illness. Social History Patient is single and has two children. 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 Substance use: Patient reported using marijuana and alcohol. Allergies: Coded Allergies: NO KNOWN ALLERGIES (Unverified , 02/18/14) Home Meds Active Scripts Levetiracetam (Keppra) 500 Mg Tab, 1 TAB PO BID, #60 TAB 0 Refills Prov:DESHAWN FELIZ MD 02/19/14 Reported Medications Trazodone Hcl (Trazodone Hcl) 50 Mg Tab, 50 MG PO HS, MG 02/18/14 Lisinopril (Lisinopril) 20 Mg Tab, 20 MG PO DAILY for 30 Days, MG 02/18/14 Current Medications Current Medications Medications (Trade) Dose Ordered Sig/Keyla Route PRN Reason Start Time Stop Time Status Last Admin Enoxaparin Sodium (Lovenox) 30 mg DAILY SC 04/04/24 10:00 04/04/24 09:45 Levetiracetam (Keppra Tablet) 500 mg BID PO 04/03/24 22:00 04/04/24 09:45 Lisinopril (Zestril Tablet) 20 mg DAILY PO 04/04/24 10:00 Trazodone HCl (Desyrel) 50 mg HS PO 04/03/24 22:00 04/03/24 23:08 Sodium Chloride 1,000 ml @ 50 mls/hr Q20H IV 04/03/24 19:00 04/04/24 10:58 Lorazepam (Ativan Inj) 1 mg ONCE PRN IV MRI 04/03/24 21:30 04/04/24 10:10 Lorazepam (Ativan Inj) 1 mg Q5MINP PRN IV SEIZURES 04/03/24 21:30 Review of Systems Review of systems is negative except HPI. Vital Signs Vital Signs Date Time Temp Pulse Resp B/P (MAP) Pulse Ox O2 Delivery O2 Flow Rate FiO2 04/04/24 16:00 98.2 63 20 118/78 (91) 95 98.2 04/04/24 08:10 Room Air* 0 21 Physical Exam Mental status examination: This is a 68 year male who appears to be of his stated age. His grooming is marginal. His eye contact good. His speech is soft. He describes mood as "very good" and his affect is restricted. He denied any suicidal or homicidal ideation. He denied any auditory or visual hallucination. His thought processes slightly disorganized and thought blocking. He is oriented to place and person. His attention and concentration impaired. His memory and language impaired. His judgment insight is limited. His impulse control is limited. His fund of knowledge is intact. Labs/Diagnostic Data Labs Test 04/04/24 11:50 04/03/24 21:44 04/03/24 17:47 04/03/24 11:42 Range/Units White Blood Count 8.6 # 4.4-10.8 10^3/uL Red Blood Count 4.40 L 4.5-5.90 10^6/uL Hemoglobin 14.3 13.5-17.5 g/dL Hematocrit 41.0 # 41.0-53.0 % Mean Corpuscular Volume 93.4 # 80.0-100.0 fL Mean Corpuscular Hemoglobin 32.6 H 28.0-32.0 pg Mean Corpuscular Hemoglobin Concent 34.9 32.0-36.0 g/dL Red Cell Distribution Width 14.3 11.8-14.3 % Platelet Count 156 140-450 10^3/uL Mean Platelet Volume 8.1 6.9-10.8 fL Neutrophils (%) (Auto) 77.7 37.0-80.0 % Lymphocytes (%) (Auto) 12.8 10.0-50.0 % Monocytes (%) (Auto) 7.9 0.0-12.0 % Eosinophils (%) (Auto) 1.2 0.0-7.0 % Basophils (%) (Auto) 0.4 0.0-2.0 % Neutrophils # (Auto) 6.7 1.6-8.6 10 ^3/uL Lymphocytes # (Auto) 1.1 0.4-5.4 10 ^3/uL Monocytes # (Auto) 0.7 0-1.3 10 ^3/uL Eosinophils # (Auto) 0.1 0-0.8 10 ^3/uL Basophils # (Auto) 0 0-0.2 10 ^3/uL Nucleated Red Blood Cells 0.1 % Sodium Level 144 136-145 mmol/L Potassium Level 3.8 3.5-5.1 mmol/L Chloride Level 113 H 98-107 mmol/L Carbon Dioxide Level 27 # 20-31 mmol/L Anion Gap 4 L 5-15 Blood Urea Nitrogen 28 H 9-23 mg/dL Creatinine 1.19 0.700-1.30 mg/dL Glomerular Filtration Rate Calc 67 >90 mL/min BUN/Creatinine Ratio 23.5 H 10.0-20.0 Serum Glucose 146 H 74-106 mg/dL Calcium Level 9.6 8.7-10.4 mg/dL Triglycerides Level 102 < 150 mg/dL Cholesterol Level 144 < 200 mg/dL LDL Cholesterol 63 < 100 mg/dL HDL Cholesterol 59 40-59 mg/dL Influenza Type A Antigen Negative Negative Influenza Type B Antigen Negative Negative SARS-CoV-2 Antigen (Rapid) Negative NEGATIVE Ammonia < 10 L 11-32 umol/L POC Glucose 189 H 70-106 mg/dl Test 04/03/24 11:30 04/03/24 11:19 Range/Units Urine Color Yellow Yellow Urine Clarity Turbid H Clear Urine pH 5.5 5.0-9.0 Urine Specific [place] 1.017 1.001-1.035 Urine Protein 1+ H Negative Urine Ketones 2+ H Negative Urine Blood 3+ H Negative /uL Urine Nitrite Negative Negative Urine Bilirubin Negative Negative Urine Urobilinogen Normal Negative mg/dL Urine Leukocyte Esterase Negative Negative /uL Urine RBC <1 0 - 3 /hpf Urine WBC 11 0 - 3 /hpf Urine Squamous Epithelial Cells Few <5 /hpf Urine Bacteria Few H None Seen /hpf Urine Hyaline Casts Many 0 - 2 /lpf Urine Mucus Few None Seen Urine Glucose Normal Normal mg/dL Urine Opiates Screen Neg NEGATIVE Urine Fentanyl Screen Neg NEGATIVE Urine Barbiturates Screen Neg NEGATIVE Urine Phencyclidine Screen Neg NEGATIVE Urine Amphetamines Screen Neg NEGATIVE Urine Benzodiazepines Screen Neg NEGATIVE Urine Cocaine Screen Neg NEGATIVE Urine Cannabinoids Screen Pos NEGATIVE Hemoglobin A1c 5.4 <5.7 % A1C Lactic Acid Level 1.5 0.4-2.0 mmol/L Total Bilirubin 1.2 H 0.2-1.0 mg/dL Aspartate Amino Transferase (AST) 208 H 13-40 U/L Alanine Aminotransferase (ALT) 64 H 7-40 U/L Alkaline Phosphatase 68 46-116 U/L Total Protein 7.4 5.7-8.2 g/dL Albumin 4.5 3.2-4.8 g/dL Thyroid Stimulating Hormone (TSH) 0.97 0.55-4.78 uIU/mL Plasma/Serum Blood Alcohol < 3.0 <10 mg/dL Microbiology Date/Time Source Procedure Growth Status 04/03/24 11:19 Blood Blood Culture - Preliminary NO GROWTH AFTER 24 HOURS OF INCUBATION. Resulted Assessment Patient with a diagnosis of depressive disorder not otherwise specified and psychotic disorder not otherwise specified rule out delirium. Plan/Recommendation I will start him on Zoloft 25 mg p.o. daily and Zyprexa 5 mg p.o. b.i.d. p.r.n. for delirium/psychotic agitation. Plan discussed with: Patient LAVERN OBREGON MD Apr 04, 2024 18:19
--- NOTE | 2024-04-04 23:45 | DVHPN2 ---
Progress Note - Dictate Date Seen: Apr 04, 2024 Medical Necessity Reason Pt with a Central, PICC or Fol: No Subjective Mr Castorena is a 68 years old right handed male with a history of hypertension, diabetes, anxiety. He was brought to the [facility] for altered mental status. I saw him on 02/18/14 for seizure I have seen examined the patient, I have talked to his nurse and sitter, the patient was but still today, oriented to person, place, he knows year and the month Last night, he was agitated UDS, 04/03/2024: Cannabinoids Plasma alcohol, 04/03/2024: < 3 Urinalysis, 04/03/2024: WBC: 11, urine leukocyte esterase: Negative WBC/HB/PLT/MCV, 04/03/2024: 17.3/15.3/182/99.5 BUN/CR, 04/03/2024: 35/2.98 HCO3 04/03/2024: 12 Lactic Acid, 04/03/2024: 1.5 HGB A1c, 04/03/2024: 5.4 TBI/AST/ALT/AP, 04/03/2024: 1.2/208/64/68 Ammonia, 04/03/24: <10 CT head, 04/03/2024: No acute intracranial abnormality. Mild cerebral atrophy. Mild changes of chronic microvascular ischemic disease. Mild ethmoid sinus disease MRI brain 04/04/2024: 1. No acute intracranial process identified. 2. Mild chronic microvascular ischemic changes vital signs Vital Sign Date Time Temp Pulse Resp B/P (MAP) Pulse Ox O2 Delivery O2 Flow Rate FiO2 04/04/24 21:00 98.6 82 18 116/79 (91) 93 98.6 04/04/24 20:00 Room Air* 0 21 Total Intake and Output 04/03/24 04/03/24 04/04/24 15:00 23:00 07:00 Intake Total 500 ml 50 ml 450 ml Balance 500 ml 50 ml 450 ml medications Current Medications Medications Dose Ordered Sig/Keyla Route Start Time Stop Time Status Last Admin Dose Admin Enoxaparin Sodium 30 mg DAILY SC 04/04/24 10:00 04/04/24 09:45 30 MG Nitroglycerin 0.4 mg Q5MINP PRN SL 04/03/24 17:15 Morphine Sulfate 2 mg Q30M PRN IV 04/03/24 17:15 Levetiracetam 500 mg BID PO 04/03/24 22:00 04/04/24 21:37 500 MG Lisinopril 20 mg DAILY PO 04/04/24 10:00 Trazodone HCl 50 mg HS PO 04/03/24 22:00 04/04/24 22:32 50 MG Ceftriaxone Sodium 50 ml @ 100 mls/hr DAILY@09 IV 04/03/24 18:00 04/04/24 10:58 100 MLS/HR Sodium Chloride 1,000 ml @ 50 mls/hr Q20H IV 04/03/24 19:00 04/04/24 10:58 50 MLS/HR Lorazepam 1 mg ONCE PRN IV 04/03/24 21:30 04/04/24 10:10 1 MG Lorazepam 1 mg Q5MINP PRN IV 04/03/24 21:30 Sertraline HCl 25 mg DAILY PO 04/05/24 10:00 Olanzapine 5 mg BID PRN PO 04/04/24 18:15 objective General: the patient is well developed and nourished. No acute distress. MENTAL STATUS: Awake and alert. Oriented to person, place. Reasonable social skills SPEECH, LANGUAGE, HIGHER CORTICAL FUNCTION: no aphasia or dysathria. CRANIAL NERVES: Pupils are equal, round and reactive. EOMs full and conjugate. No nystagmus. Facial sensation intact in all three divisions bilaterally. Mandibular strength intact. Facial muscles symmetrical and strength intact. SENSATION: Sensation to touch and pinprick is normal. MOTOR: Normal tone in the upper and lower extremity. Normal muscle bulk. No fasciculations. No abnormal movements or posturing. Muscle strength of the major groups in the extremities is 5/5. REFLEXES: Deep tendon reflexes symmetrical. No pathological reflexes. CEREBELLAR/COORDINATION: Finger to nose is normal bilaterally. GAIT/STATION: deferred. laboratory and microbiology Laboratory Tests 04/04/24 11:50 Test 04/04/24 11:50 Range/Units Serum Glucose 146 H 74-106 mg/dL Problem List Altered mental status ? Metabolic encephalopathy ? Partial complex seizure Complex partial seizure Alcoholism Dementia, may be Wernicke/Korsakoff disease Alcohol abuse Leukocytosis, rule out sepsis Assessment/Plan Monitoring Supportive treatment UDS EEG IV antibiotics Keppra 500mg bid Ativan for seizure breakthrough Banana bag More recommendation per clinical course This medical document was created using an electronic medical record system with [employer] computerized dictation system. Although this document has been carefully reviewed, there may still be some phonetic and typographical errors. These areas are purely typographical due to imperfections of the software programs, and do not reflect any compromise in the patient's medical care Prognosis poor Plan discussed with: Other ELLIE BANERJEE MD Apr 04, 2024 23:45
[2024-04-05] VITALS (7 sets, daily range): BP systolic 98–123; BP diastolic 56–81; PULSE 51–63; RESP 16–18; TEMP 97.7–98.9; O2SAT 93–96
--- NOTE | 2024-04-05 00:29 | DVHEEG2 ---
Neurology EEG Procedural Note Procedural Note EXAM DATE: 04/04/2024 REFERRING DOCTOR: Dr. Banerjee TECHNIQUE: Eighteen channels of EEG, 2 channels of EOG, and 1 channel of EKG were recorded using the International 10/20 system. CLINICAL DATA: The patient was referred for an EEG evaluation for the evidence of seizure disorder. MEDICATIONS: Seizure chart BACKGROUND ACTIVITY: While the patient was awake, the background activity consisted of well regulated 9 Hz rhythmic waveforms, symmetrically distributed over both posterior quadrants and was reactive to eye opening. ACTIVATION: Hyperventilation: Not done Photic Stimulation: No photic convulsive response Sleep: Noticed IMPRESSION: This is a normal EEG. No focal, lateralized, or epileptiform features are noted. If clinically indicated to rule out a seizure disorder, recommend repeat EEG with sleep deprivation. The EKG channel showed a regular heart rate of 66 per minute. [place] [address] ELLIE BANERJEE MD Apr 05, 2024 00:29
[2024-04-05] MEDS: SERTRALINE HCL 50 MG TAB PO SCH (09:50)
[2024-04-05] MEDS ORDERED: cefTRIAXone 1GM/50ML D5W 50 ML IV ONE (12:00)
--- NOTE | 2024-04-05 12:42 | DVHPN2 ---
Progress Note Date Seen: Apr 05, 2024 Medical Necessity Reason Pt with a Central, PICC or Fol: No Subjective Review of Systems: HEENT:Normal, RESPIRATORY:Normal, GI:Normal, NEURO:Normal Objective vital signs Vital Sign Date Time Temp Pulse Resp B/P (MAP) Pulse Ox O2 Delivery O2 Flow Rate FiO2 04/05/24 09:50 120/81 04/05/24 08:32 98.0 60 18 95 98.0 04/05/24 08:00 Room Air* 0 21 Total Intake and Output 04/04/24 04/04/24 04/05/24 15:00 23:00 07:00 Intake Total 50 ml 1580 ml 680 ml Balance 50 ml 1580 ml 680 ml medications Current Medications Medications Dose Ordered Sig/Keyla Route Start Time Stop Time Status Last Admin Dose Admin Enoxaparin Sodium 30 mg DAILY SC 04/04/24 10:00 04/05/24 09:52 30 MG Nitroglycerin 0.4 mg Q5MINP PRN SL 04/03/24 17:15 Morphine Sulfate 2 mg Q30M PRN IV 04/03/24 17:15 Levetiracetam 500 mg BID PO 04/03/24 22:00 04/05/24 09:50 500 MG Lisinopril 20 mg DAILY PO 04/04/24 10:00 04/05/24 09:50 20 MG Trazodone HCl 50 mg HS PO 04/03/24 22:00 04/04/24 22:32 50 MG Sodium Chloride 1,000 ml @ 50 mls/hr Q20H IV 04/03/24 19:00 04/05/24 11:10 50 MLS/HR Lorazepam 1 mg ONCE PRN IV 04/03/24 21:30 04/04/24 10:10 1 MG Lorazepam 1 mg Q5MINP PRN IV 04/03/24 21:30 Sertraline HCl 25 mg DAILY PO 04/05/24 10:00 04/05/24 09:50 25 MG Olanzapine 5 mg BID PRN PO 04/04/24 18:15 Folic Acid 1 mg/ Magnesium Sulfate 8 meq/ Multivitamins 10 ml/Thiamine HCl 100 mg/Sodium Chloride 1,013.2 ml @ 126.247 mls/hr DAILY@1800 INJ 04/05/24 18:00 Ceftriaxone Sodium 50 ml @ 100 mls/hr DAILY@09 IV 04/06/24 09:00 Doxycycline Hyclate 250 ml @ 125 mls/hr Q12H IV 04/05/24 12:00 Examination: GENERAL:Normal, LUNGS:Normal, ABDOMEN:Normal, SKIN:Normal, NEURO:Normal laboratory and microbiology Laboratory Tests 04/04/24 11:50 Test 04/04/24 11:50 Range/Units Serum Glucose 146 H 74-106 mg/dL Microbiology Date/Time Source Procedure Growth Status 04/03/24 11:19 Blood Blood Culture - Preliminary NO GROWTH AFTER 48 HOURS OF INCUBATION. Resulted Labs and/or images reviewed: Labs reviewed by me, Image(s) reviewed by me Problem List/Assessment/Plan Problem List/Assessment/Plan 1. Metabolic encephalopathy Neurology consult, obtain brain MRI, supportive care 2. Hypertension Monitor blood pressure, continue home meds 3. Seizures Seizure precautions, continue with Keppra 4. Leukocytosis without sepsis or SIRS Rocephin for now 5. Acute psychosis? Tele psych consult 6. ANDREWS likely vasomotor nephropathy IV fluids at 60 mL 7. Dementia 8. Cellulitis of left foot Tetanus shot, IV antibiotics 9. ETOH abuse, patient drinks 12 beers a day Continue banana bag, monitor for DTs Subjective: Patient is alert Objective: Patient was admitted for metabolic encephalopathy, patient is more alert today. Likely encephalopathy was related to being postictal S/P seizure. MRI of brain is negative head CT is negative. UA is negative for urinary tract infection. EEG was normal. Patient was seen by neurologist who believes patient may have dementia. Patient was seen by tele psych doctor who place patient on fluoxetine for depression. Patient was found to have ANDREWS which is improving on IV fluids. Patient has some leukocytosis which is likely from inflammation. Patient has redness to left lower foot which appears to be cellulitis, we will start patient on IV Rocephin and doxycycline. Patient reports being a daily drinker approximately 12 beers a day, there are no signs of DTs at this time patient does not have any tremors. Plan: Continue with IV fluids for ANDREWS, start IV antibiotics for left foot status cellulitis, we will discharge tomorrow, neurology consult appreciated, seizure precautions, continue banana bag Plan discussed with: Patient My Orders My Orders Orders - AILYN VICTORIA Procedure Category Date Status Time * Wound Consult CONS 04/05/24 Transmitted Ceftriaxone 1gm/50ml PHA 04/06/24 In Process D5w (Rocephin) 09:00 Doxycycline PHA 04/05/24 In Process 100mg/250ml 12:00 L Foot 3 View Xray XY 04/05/24 Logged 11:48 R Foot 3 View Xray XY 04/05/24 Logged 11:49 * Plant Control Aide CONS 04/05/24 Transmitted Consult Tetanus PHA 04/05/24 Transmitted [id number] 12:45 Date of Service: Apr 05, 2024 Billing Provider: LOUIS HWANG MD Common Visit Codes: [id number] INP/OBS CARE (MOD) AILYN VICTORIA BUSINESS ANALYSIS SPECIALIST Apr 05, 2024 12:42
[2024-04-05] MEDS: DOXYCYCLINE 100MG/250ML 250 ML IV SCH (12:50)
--- NOTE | 2024-04-05 13:26 | DVH ---
CLINICAL INDICATION: r.o fx TECHNIQUE: 3 views of the right foot XY R FOOT 3 VIEW XRAY Comparison: None FINDINGS/IMPRESSION: There is no evidence of acute fracture or dislocation. Soft tissues are unremarkable.
[2024-04-05 13:27] LABS: Chloride 108 mmol/L (98-107); Potassium 4.2 mmol/L (3.5-5.1); Sodium 141 mmol/L (136-145)
[2024-04-05 13:28] LABS: Anion Gap 4 (5-15); Calcium 9.7 mg/dL (8.7-10.4); Carbon Dioxide 29 mmol/L (20-31)
--- NOTE | 2024-04-05 13:29 | DVH ---
CLINICAL INDICATION: r.o fx TECHNIQUE: 3 views of the left foot XY L FOOT 3 VIEW XRAY Comparison: None FINDINGS/IMPRESSION: Overlying dressing somewhat limits evaluation of the forefoot on frontal view. Otherwise, there is no evidence of acute fracture or dislocation. Soft tissues are unremarkable.
[2024-04-05 13:33] LABS: BUN/Creatinine Ratio 25.7 (10.0-20.0); Blood Urea Nitrogen 26 mg/dL (9-23); Glucose 136 mg/dL (74-106)
[2024-04-05] MEDS: HYDROcodone-ACET 5/325MG TAB PO PRN (14:06)
[2024-04-05] MEDS: TETANUS-DIPTH-ACEL PERTUSSIS 0.5ML SYR Tdap IM ONE (14:08)
[2024-04-05 14:23] LABS: Basophils # (auto) 0.1 10 ^3/uL (0-0.2); Eosinophils # (auto) 0.1 10 ^3/uL (0-0.8); Eosinophils % (auto) 1.5 % (0.0-7.0); Hematocrit 40.4 % (41.0-53.0); Lymphocytes # (auto) 1.3 10 ^3/uL (0.4-5.4); Lymphocytes % (auto) 17.6 % (10.0-50.0); Mean Corpuscular Hemoglobin 32.5 pg (28.0-32.0); Mean Corpuscular Hgb Conc. 34.7 g/dL (32.0-36.0); Mean Corpuscular Volume 93.5 fL (80.0-100.0); Monocytes # (auto) 0.6 10 ^3/uL (0-1.3); Monocytes % (auto) 8.9 % (0.0-12.0); Neutrophils # (auto) 5.2 10 ^3/uL (1.6-8.6); Nucleated Red Blood Cells % 0.1 %; Platelet Count (auto) 151 10^3/uL (140-450); Red Blood Cells 4.32 10^6/uL (4.5-5.90); Red Cell Distribution Width 14.2 % (11.8-14.3); White Blood Cell 7.3 10^3/uL (4.4-10.8)
[2024-04-05] MEDS: FOLIC ACID 1 MG, MAGNESIUM SULF SDV 50% 8 MEQ, MULTIPLE VITAMIN 10 ML, THIAMINE INJ 100... INJ SCH (17:38)
--- NOTE | 2024-04-05 22:35 | DVHPN2 ---
Progress Note - Dictate Date Seen: Apr 05, 2024 Medical Necessity Reason Pt with a Central, PICC or Fol: No Subjective Mr. Castorena is a 68 years old right handed male with a history of hypertension, diabetes, anxiety. He was brought to the [facility] for altered mental status. I saw him on 02/18/14 for seizure I have seen examined the patient, I have talked to his nurse, he is awake, socially appropriate, oriented to person, place, not able to to give a history UDS, 04/03/2024: Cannabinoids Plasma alcohol, 04/03/2024: < 3 Urinalysis, 04/03/2024: WBC: 11, urine leukocyte esterase: Negative WBC/HB/PLT/MCV, 04/03/2024: 17.3/15.3/182/99.5 BUN/CR, 04/03/2024: 35/2.98 HCO3 04/03/2024: 12 Lactic Acid, 04/03/2024: 1.5 HGB A1c, 04/03/2024: 5.4 TBI/AST/ALT/AP, 04/03/2024: 1.2/208/64/68 Ammonia, 04/03/24: <10 EEG, 04/04/2024: Normal CT head, 04/03/2024: No acute intracranial abnormality. Mild cerebral atrophy. Mild changes of chronic microvascular ischemic disease. Mild ethmoid sinus disease MRI brain 04/04/2024: 1. No acute intracranial process identified. 2. Mild chronic microvascular ischemic changes vital signs Vital Sign Date Time Temp Pulse Resp B/P (MAP) Pulse Ox O2 Delivery O2 Flow Rate FiO2 04/05/24 21:00 98.9 63 17 103/56 (72) 96 98.9 04/05/24 20:00 Room Air* 0 21 Total Intake and Output 04/04/24 04/04/24 04/05/24 15:00 23:00 07:00 Intake Total 50 ml 1580 ml 680 ml Balance 50 ml 1580 ml 680 ml medications Current Medications Medications Dose Ordered Sig/Keyla Route Start Time Stop Time Status Last Admin Dose Admin Enoxaparin Sodium 30 mg DAILY SC 04/04/24 10:00 04/05/24 09:52 30 MG Nitroglycerin 0.4 mg Q5MINP PRN SL 04/03/24 17:15 Morphine Sulfate 2 mg Q30M PRN IV 04/03/24 17:15 Levetiracetam 500 mg BID PO 04/03/24 22:00 04/05/24 20:56 500 MG Lisinopril 20 mg DAILY PO 04/04/24 10:00 04/05/24 09:50 20 MG Trazodone HCl 50 mg HS PO 04/03/24 22:00 04/04/24 22:32 50 MG Sodium Chloride 1,000 ml @ 50 mls/hr Q20H IV 04/03/24 19:00 04/05/24 11:10 50 MLS/HR Lorazepam 1 mg ONCE PRN IV 04/03/24 21:30 04/04/24 10:10 1 MG Lorazepam 1 mg Q5MINP PRN IV 04/03/24 21:30 Sertraline HCl 25 mg DAILY PO 04/05/24 10:00 04/05/24 09:50 25 MG Olanzapine 5 mg BID PRN PO 04/04/24 18:15 Folic Acid 1 mg/ Magnesium Sulfate 8 meq/ Multivitamins 10 ml/Thiamine HCl 100 mg/Sodium Chloride 1,013.2 ml @ 126.247 mls/hr DAILY@1800 INJ 04/05/24 18:00 04/05/24 17:38 126.247 MLS/HR Ceftriaxone Sodium 50 ml @ 100 mls/hr DAILY@09 IV 04/06/24 09:00 Doxycycline Hyclate 250 ml @ 125 mls/hr Q12H IV 04/05/24 12:00 04/05/24 12:50 125 MLS/HR Acetaminophen/ Hydrocodone Bitart 1 tab Q4HPRN PRN PO 04/05/24 13:15 04/05/24 14:06 1 TAB objective General: the patient is well developed and nourished. No acute distress. MENTAL STATUS: Awake and alert. Oriented to person, place. Reasonable social skills SPEECH, LANGUAGE, HIGHER CORTICAL FUNCTION: no aphasia or dysathria. CRANIAL NERVES: Pupils are equal, round and reactive. EOMs full and conjugate. No nystagmus. Facial sensation intact in all three divisions bilaterally. Mandibular strength intact. Facial muscles symmetrical and strength intact. SENSATION: Sensation to touch and pinprick is normal. MOTOR: Normal tone in the upper and lower extremity. Normal muscle bulk. No fasciculations. No abnormal movements or posturing. Muscle strength of the major groups in the extremities is 5/5. REFLEXES: Deep tendon reflexes symmetrical. No pathological reflexes. CEREBELLAR/COORDINATION: Finger to nose is normal bilaterally. GAIT/STATION: deferred. laboratory and microbiology Laboratory Tests 04/05/24 13:35 04/05/24 09:52 Test 04/05/24 09:52 Range/Units Serum Glucose 136 H 74-106 mg/dL Problem List Altered mental status ? Metabolic encephalopathy ? Partial complex seizure Complex partial seizure Alcoholism Dementia, may be Wernicke/Korsakoff disease Alcohol abuse Urinary tract infection Leukocytosis, rule out sepsis Assessment/Plan Monitoring Supportive treatment IV antibiotics Keppra 500mg bid Ativan for seizure breakthrough Banana bag More recommendation per clinical course This medical document was created using an electronic medical record system with [employer] dictation system. Although this document has been carefully reviewed, there may still be some phonetic and typographical errors. These areas are purely typographical due to imperfections of the software programs, and do not reflect any compromise in the patient's medical care Prognosis poor Plan discussed with: Other ELLIE BANERJEE MD Apr 05, 2024 22:35
[2024-04-06 00:40] VITALS: BP 100/59; PULSE 56; RESP 17; TEMP 97.6; O2SAT 96
[2024-04-06 05:00] VITALS: BP 107/53; PULSE 89; RESP 16; TEMP 97.6; O2SAT 94
[2024-04-06 08:00] VITALS: PULSE 47; PULSE 54; RESP 20; O2SAT 98
[2024-04-06 09:07] VITALS: BP 126/79; PULSE 54; RESP 20; TEMP 97.9; O2SAT 98
[2024-04-06] MEDS: cefTRIAXone 1GM/50ML D5W 50 ML IV SCH (09:22)
--- NOTE | 2024-04-06 11:12 | DVHPN2 ---
Progress Note - Dictate Date Seen: Apr 06, 2024 Medical Necessity Reason Pt with a Central, PICC or Fol: No Subjective Mr. Castorena is a 68 years old right handed male with a history of hypertension, diabetes, anxiety. He was brought to the [facility] for altered mental status. I saw him on 02/18/14 for seizure I have seen examined the patient, I have talked to his nurse, he is awake, socially appropriate, oriented to person, place, he knows year, he still does not not remember what happened to him; he presumed he had a seizure UDS, 04/03/2024: Cannabinoids Plasma alcohol, 04/03/2024: < 3 Urinalysis, 04/03/2024: WBC: 11, urine leukocyte esterase: Negative WBC/HB/PLT/MCV, 04/03/2024: 17.3/15.3/182/99.5 BUN/CR, 04/03/2024: 35/2.98 HCO3 04/03/2024: 12 Lactic Acid, 04/03/2024: 1.5 HGB A1c, 04/03/2024: 5.4 TBI/AST/ALT/AP, 04/03/2024: 1.2/208/64/68 Ammonia, 04/03/24: <10 EEG, 04/04/2024: Normal CT head, 04/03/2024: No acute intracranial abnormality. Mild cerebral atrophy. Mild changes of chronic microvascular ischemic disease. Mild ethmoid sinus disease MRI brain 04/04/2024: 1. No acute intracranial process identified. 2. Mild chronic microvascular ischemic changes vital signs Vital Sign Date Time Temp Pulse Resp B/P (MAP) Pulse Ox O2 Delivery O2 Flow Rate FiO2 04/06/24 10:12 126/79 04/06/24 09:07 97.9 54 20 98 97.9 04/05/24 20:00 Room Air* 0 21 Total Intake and Output 04/05/24 04/05/24 04/06/24 15:00 23:00 07:00 Intake Total 490 ml 600 ml 600 ml Output Total 250 ml 250 ml Balance 240 ml 600 ml 350 ml medications Current Medications Medications Dose Ordered Sig/Keyla Route Start Time Stop Time Status Last Admin Dose Admin Enoxaparin Sodium 30 mg DAILY SC 04/04/24 10:00 04/06/24 10:13 30 MG Nitroglycerin 0.4 mg Q5MINP PRN SL 04/03/24 17:15 Morphine Sulfate 2 mg Q30M PRN IV 04/03/24 17:15 Levetiracetam 500 mg BID PO 04/03/24 22:00 04/06/24 10:12 500 MG Lisinopril 20 mg DAILY PO 04/04/24 10:00 04/06/24 10:12 20 MG Trazodone HCl 50 mg HS PO 04/03/24 22:00 04/04/24 22:32 50 MG Sodium Chloride 1,000 ml @ 50 mls/hr Q20H IV 04/03/24 19:00 04/05/24 11:10 50 MLS/HR Lorazepam 1 mg ONCE PRN IV 04/03/24 21:30 04/04/24 10:10 1 MG Lorazepam 1 mg Q5MINP PRN IV 04/03/24 21:30 Sertraline HCl 25 mg DAILY PO 04/05/24 10:00 04/06/24 10:13 25 MG Olanzapine 5 mg BID PRN PO 04/04/24 18:15 Folic Acid 1 mg/ Magnesium Sulfate 8 meq/ Multivitamins 10 ml/Thiamine HCl 100 mg/Sodium Chloride 1,013.2 ml @ 126.247 mls/hr DAILY@1800 INJ 04/05/24 18:00 04/05/24 17:38 126.247 MLS/HR Ceftriaxone Sodium 50 ml @ 100 mls/hr DAILY@09 IV 04/06/24 09:00 04/06/24 09:22 100 MLS/HR Doxycycline Hyclate 250 ml @ 125 mls/hr Q12H IV 04/05/24 12:00 04/05/24 23:22 125 MLS/HR Acetaminophen/ Hydrocodone Bitart 1 tab Q4HPRN PRN PO 04/05/24 13:15 04/05/24 14:06 1 TAB objective General: the patient is well developed and nourished. No acute distress. MENTAL STATUS: Awake and alert. Oriented to person, place. Reasonable social skills SPEECH, LANGUAGE, HIGHER CORTICAL FUNCTION: no aphasia or dysathria. CRANIAL NERVES: Pupils are equal, round and reactive. EOMs full and conjugate. No nystagmus. Facial sensation intact in all three divisions bilaterally. Mandibular strength intact. Facial muscles symmetrical and strength intact. SENSATION: Sensation to touch and pinprick is normal. MOTOR: Normal tone in the upper and lower extremity. Normal muscle bulk. No fasciculations. No abnormal movements or posturing. Muscle strength of the major groups in the extremities is 5/5. REFLEXES: Deep tendon reflexes symmetrical. No pathological reflexes. CEREBELLAR/COORDINATION: Finger to nose is normal bilaterally. GAIT/STATION: deferred. laboratory and microbiology Laboratory Tests 04/05/24 13:35 04/05/24 09:52 Test 04/05/24 09:52 Range/Units Serum Glucose 136 H 74-106 mg/dL Problem List Altered mental status ? Metabolic encephalopathy ? Partial complex seizure Complex partial seizure Alcoholism Dementia, may be Wernicke/Korsakoff disease Alcohol abuse Urinary tract infection Leukocytosis, rule out sepsis Assessment/Plan Monitoring Supportive treatment IV antibiotics Keppra 500mg bid Ativan for seizure breakthrough Banana bag DMV report in the chart More recommendation per clinical course This medical document was created using an electronic medical record system with [employer] computerized dictation system. Although this document has been carefully reviewed, there may still be some phonetic and typographical errors. These areas are purely typographical due to imperfections of the software programs, and do not reflect any compromise in the patient's medical care Prognosis poor Plan discussed with: Other ELLIE BANERJEE MD Apr 06, 2024 11:11
--- NOTE | 2024-04-06 12:32 | DVHPN2 ---
Progress Note - Dictate Medical Necessity Reason Pt with a Central, PICC or Fol: No vital signs Vital Sign Date Time Temp Pulse Resp B/P (MAP) Pulse Ox O2 Delivery O2 Flow Rate FiO2 04/06/24 10:12 126/79 04/06/24 09:07 97.9 54 20 98 97.9 04/05/24 20:00 Room Air* 0 21 Total Intake and Output 04/05/24 04/05/24 04/06/24 15:00 23:00 07:00 Intake Total 490 ml 600 ml 600 ml Output Total 250 ml 250 ml Balance 240 ml 600 ml 350 ml medications Current Medications Medications Dose Ordered Sig/Keyla Route Start Time Stop Time Status Last Admin Dose Admin Enoxaparin Sodium 30 mg DAILY SC 04/04/24 10:00 04/06/24 10:13 30 MG Nitroglycerin 0.4 mg Q5MINP PRN SL 04/03/24 17:15 Morphine Sulfate 2 mg Q30M PRN IV 04/03/24 17:15 Levetiracetam 500 mg BID PO 04/03/24 22:00 04/06/24 10:12 500 MG Lisinopril 20 mg DAILY PO 04/04/24 10:00 04/06/24 10:12 20 MG Trazodone HCl 50 mg HS PO 04/03/24 22:00 04/04/24 22:32 50 MG Sodium Chloride 1,000 ml @ 50 mls/hr Q20H IV 04/03/24 19:00 04/05/24 11:10 50 MLS/HR Lorazepam 1 mg ONCE PRN IV 04/03/24 21:30 04/04/24 10:10 1 MG Lorazepam 1 mg Q5MINP PRN IV 04/03/24 21:30 Sertraline HCl 25 mg DAILY PO 04/05/24 10:00 04/06/24 10:13 25 MG Olanzapine 5 mg BID PRN PO 04/04/24 18:15 Folic Acid 1 mg/ Magnesium Sulfate 8 meq/ Multivitamins 10 ml/Thiamine HCl 100 mg/Sodium Chloride 1,013.2 ml @ 126.247 mls/hr DAILY@1800 INJ 04/05/24 18:00 04/05/24 17:38 126.247 MLS/HR Ceftriaxone Sodium 50 ml @ 100 mls/hr DAILY@09 IV 04/06/24 09:00 04/06/24 09:22 100 MLS/HR Doxycycline Hyclate 250 ml @ 125 mls/hr Q12H IV 04/05/24 12:00 04/05/24 23:22 125 MLS/HR Acetaminophen/ Hydrocodone Bitart 1 tab Q4HPRN PRN PO 04/05/24 13:15 04/05/24 14:06 1 TAB laboratory and microbiology Laboratory Tests 04/05/24 13:35 04/05/24 09:52 Test 04/05/24 09:52 Range/Units Serum Glucose 136 H 74-106 mg/dL SANTI CERVANTES [employer]INTEND[employer] Apr 06, 2024 12:32
[2024-04-06] MEDS ORDERED: CEPH250C PO (12:33)
--- NOTE | 2024-04-06 12:34 | DVHDS2 ---
Discharge Summary Date of Admission Apr 03, 2024 at 17:05 Date of Discharge: Apr 06, 2024 Labs/Diagnostic Data: Laboratory Results Test 04/05/24 13:35 04/05/24 09:52 04/04/24 11:50 04/03/24 21:44 White Blood Count 7.3 10^3/uL (4.4-10.8) Red Blood Count 4.32 10^6/uL (4.5-5.90) Hemoglobin 14.0 g/dL (13.5-17.5) Hematocrit 40.4 % (41.0-53.0) Mean Corpuscular Volume 93.5 fL (80.0-100.0) Mean Corpuscular Hemoglobin 32.5 pg (28.0-32.0) Mean Corpuscular Hemoglobin Concent 34.7 g/dL (32.0-36.0) Red Cell Distribution Width 14.2 % (11.8-14.3) Platelet Count 151 10^3/uL (140-450) Mean Platelet Volume 8.5 fL (6.9-10.8) Neutrophils (%) (Auto) 71.0 % (37.0-80.0) Lymphocytes (%) (Auto) 17.6 % (10.0-50.0) Monocytes (%) (Auto) 8.9 % (0.0-12.0) Eosinophils (%) (Auto) 1.5 % (0.0-7.0) Basophils (%) (Auto) 1.0 % (0.0-2.0) Neutrophils # (Auto) 5.2 10 ^3/uL (1.6-8.6) Lymphocytes # (Auto) 1.3 10 ^3/uL (0.4-5.4) Monocytes # (Auto) 0.6 10 ^3/uL (0-1.3) Eosinophils # (Auto) 0.1 10 ^3/uL (0-0.8) Basophils # (Auto) 0.1 10 ^3/uL (0-0.2) Nucleated Red Blood Cells 0.1 % Sodium Level 141 mmol/L (136-145) Potassium Level 4.2 mmol/L (3.5-5.1) Chloride Level 108 mmol/L (98-107) Carbon Dioxide Level 29 mmol/L (20-31) Anion Gap 4 (5-15) Blood Urea Nitrogen 26 mg/dL (9-23) Creatinine 1.01 mg/dL (0.700-1.30) Glomerular Filtration Rate Calc 81 mL/min (>90) BUN/Creatinine Ratio 25.7 (10.0-20.0) Serum Glucose 136 mg/dL (74-106) Calcium Level 9.7 mg/dL (8.7-10.4) Magnesium Level 1.9 mg/dL (1.6-2.6) Triglycerides Level 102 mg/dL (< 150) Cholesterol Level 144 mg/dL (< 200) LDL Cholesterol 63 mg/dL (< 100) HDL Cholesterol 59 mg/dL (40-59) Influenza Type A Antigen Negative (Negative) Influenza Type B Antigen Negative (Negative) SARS-CoV-2 Antigen (Rapid) Negative (NEGATIVE) Test 04/03/24 17:47 04/03/24 11:42 04/03/24 11:30 04/03/24 11:19 Ammonia < 10 umol/L (11-32) POC Glucose 189 mg/dl (70-106) Urine Color Yellow (Yellow) Urine Clarity Turbid (Clear) Urine pH 5.5 (5.0-9.0) Urine Specific [place] 1.017 (1.001-1.035) Urine Protein 1+ (Negative) Urine Ketones 2+ (Negative) Urine Blood 3+ /uL (Negative) Urine Nitrite Negative (Negative) Urine Bilirubin Negative (Negative) Urine Urobilinogen Normal mg/dL (Negative) Urine Leukocyte Esterase Negative /uL (Negative) Urine RBC <1 /hpf (0 - 3) Urine WBC 11 /hpf (0 - 3) Urine Squamous Epithelial Cells Few /hpf (<5) Urine Bacteria Few /hpf (None Seen) Urine Hyaline Casts Many /lpf (0 - 2) Urine Mucus Few (None Seen) Urine Glucose Normal mg/dL (Normal) Urine Opiates Screen Neg (NEGATIVE) Urine Fentanyl Screen Neg (NEGATIVE) Urine Barbiturates Screen Neg (NEGATIVE) Urine Phencyclidine Screen Neg (NEGATIVE) Urine Amphetamines Screen Neg (NEGATIVE) Urine Benzodiazepines Screen Neg (NEGATIVE) Urine Cocaine Screen Neg (NEGATIVE) Urine Cannabinoids Screen Pos (NEGATIVE) Hemoglobin A1c 5.4 % A1C (<5.7) Lactic Acid Level 1.5 mmol/L (0.4-2.0) Total Bilirubin 1.2 mg/dL (0.2-1.0) Aspartate Amino Transferase (AST) 208 U/L (13-40) Alanine Aminotransferase (ALT) 64 U/L (7-40) Alkaline Phosphatase 68 U/L (46-116) Total Protein 7.4 g/dL (5.7-8.2) Albumin 4.5 g/dL (3.2-4.8) Thyroid Stimulating Hormone (TSH) 0.97 uIU/mL (0.55-4.78) Plasma/Serum Blood Alcohol < 3.0 mg/dL (<10) Other Laboratory Tests 04/05/24 13:35 04/05/24 09:52 Brief Hx & Hospital Course: 68-year-old male with a history of hypertension, seizures presents to the emergency room for altered mental status. Apparently patient was found wandering through the neighborhood barefoot by EMS. Patient was admitted for metabolic encephalopathy related to alcohol intoxication. Patient has a history of EtOH, patient also has left foot cellulitis. Patient was seen by neurology. Per neurology patient most likely has early dementia. Patient also most likely had a breakthrough seizure related to EtOH. CT of the head is negative, MRI and no acute findings, and EEG has been signs of seizure activity. Patient was cleared for discharge she will continue on Keppra. Keflex was prescribed at discharge for cellulitis patient was discharged to a inpatient alcoholic facility in [place]. Patient's son did transport patient to facility. He will follow-up with his PCP in 1 week. The patient received proper medical treatment and medications. Vital signs, Imaging and Laboratory Work was monitored daily. All consults recommendations were followed as provided. There were no complaints or new complaints upon discharge, all questions and concerns were answered. Patient was advised to return to the ER or call 911 if any headaches, dizziness, shortness of breath, chest pain, bleeding, fevers, or worsening of medical condition. Patient/Family was counseled about treatment plan, medications, possible side effects, patient verbalized understanding. All questions were answered to the best of my ability. The patient symptoms improved and they are okay to be DC. Condition at Discharge: Stable Final Diagnosis/Problems List breakthrough seizure left foot cellulitis possible dementia-will need follow up neurology for testing Discharge Disposition: Home Discharge Instruct/Medications Diet: Cardiac 2g Na,low cholest Activity: No Restrictions, As Tolerated Activity comment: No driving Follow Up/Referral: pcp 1 week Medications: keflex for left foot cellulitis Discharge Statement: "Patient was advised to return to the ER or call 911 if any headaches, dizziness, shortness of breath, chest pain, abdominal pain, bleeding, fevers, or worsening of medical condition. Patient was counseled about treatment plan, medications, possible side effects, patientverbalized understanding. All questions were answered to the best of my ability. This discharge took greater then 30 minutes in planning, reviewing documentation, counseling the patient, and discussing with other team members." ASSESSMENT ASSESSMENT Assessment breakthrough seizure left foot cellulitis possible dementia-will need follow up neurology for testing SANTI CERVANTES NP Apr 06, 2024 12:34
[2024-04-06 13:00] VITALS: BP 115/82; PULSE 66; RESP 20; TEMP 98.1; O2SAT 96
[2024-04-06 13:52] VITALS: BP 126/79; PULSE 54; RESP 20; TEMP 97.9; O2SAT 98
== END 2024-04-06 14:41 | disposition home or self-care (01) | DRG 100 ==
LOC: ER 10:15 → EDBD 10:15 → TELE 17:05 → TELE-WESTW 23:54
PROVIDERS: ADMIT Nurse Practitioner Family; ATTEND Nurse Practitioner
DX: G40.209 Localization-related (focal) (partial) symptomatic epilepsy and epileptic syndromes with complex partial seizures, not intractable, without status epilepticus (principal); N17.0 Acute kidney failure with tubular necrosis; E87.20 Acidosis, unspecified; F02.83 Dementia in other diseases classified elsewhere, unspecified severity, with mood disturbance; L03.116 Cellulitis of left lower limb; Z59.01 Sheltered homelessness; E51.2 Wernicke's encephalopathy; Z20.822 Contact with and (suspected) exposure to COVID-19; D72.829 Elevated white blood cell count, unspecified; E11.22 Type 2 diabetes mellitus with diabetic chronic kidney disease; F10.229 Alcohol dependence with intoxication, unspecified; F29 Unspecified psychosis not due to a substance or known physiological condition; F32.A Depression, unspecified; Y90.9 Presence of alcohol in blood, level not specified; G30.9 Alzheimer's disease, unspecified; I12.9 Hypertensive chronic kidney disease with stage 1 through stage 4 chronic kidney disease, or unspecified chronic kidney disease; N18.9 Chronic kidney disease, unspecified; F41.9 Anxiety disorder, unspecified; Z87.891 Personal history of nicotine dependence; Z82.3 Family history of stroke; Z82.49 Family history of ischemic heart disease and other diseases of the circulatory system; Z91.83 Wandering in diseases classified elsewhere; Z79.899 Other long term (current) drug therapy
CPT/HCPCS: 36415; 70450; 70551; 71045; 73630; 80048; 80053; 80061; 80307; 80320; 81001; 82140; 82962; 83036; 83605; 83735; 84443; 85025; 87040; 87426; 87804; 90715; 93005; 95819; 99291; G0378; J3490